=== PATIENT | male | born 1965 | race Caucasian/White ===

== ENCOUNTER 2021-02-18 11:30 | Inpatient (IN) ==
[2021-02-18] MEDS ORDERED: BISACODYL 5 MG TABLET PO PRN (12:34)
[2021-02-18] MEDS ORDERED: ACETAMINOPHEN 325 MG TABLET PO PRN (12:34)
[2021-02-18] MEDS ORDERED: HYDROmorphone 2 MG/1 ML VIAL IV PRN (12:34)
[2021-02-18] MEDS ORDERED: ONDANSETRON 4 MG/2 ML VIAL IV PRN (12:34)
[2021-02-18 12:54] LABS: Basophils # 0.1 10*3/uL (0.0-0.2); Basophils % 0.6 % (0.0-0.8); Eosinophils # 0.3 10*3/uL (0.0-0.87); Eosinophils % 2.2 % (0.00-10.9); Hematocrit 38.4 VOL% (42.0-52.0); Hemoglobin 13.3 GM/DL (14.0-18.0); Immature Granulocytes % 0.9 %; Immature Granulocytes Absolute 0.11 #; Lymphocytes # 1.9 10*3/uL (1.4-4.0); Lymphocytes % 15.6 % (21.2-54.2); Mean Corpuscular HGB Conc 34.6 GM/DL (32-36); Mean Corpuscular Volume 87.1 FL (87-102); Mean Platelet Volume 9.6 FL (9.6-12.0); Monocytes % 10.3 % (1.7-12.7); Neutrophils % 70.4 % (38.7-73.9); Platelet Count 434 T/CUMM (130-400); Red Blood Count 4.41 MC/CUMM (3.8-5.5); White Blood Count 12.1 T/CUMM (4-12)
[2021-02-18] MEDS: HYDROmorphone 2 MG/1 ML VIAL IV PRN (12:58)
[2021-02-18] MEDS: PIPERACILLIN/TAZOBACTAM 3,375 MG in SODIUM CHLORIDE 0.9% 100 ML IV SCH ×2 (12:59→21:11)
[2021-02-18] MEDS ORDERED: BUPIVACAINE MPF 0.25% 30 ML VIAL ONE (13:07)
[2021-02-18 13:21] LABS: Alanine Aminotransferase 23 U/L (16-61); Albumin 2.5 G/DL (3.4-5.0); Alkaline Phosphatase 128 U/L (45-117); Aspartate Amino Transferase 21 U/L (0-37); Bilirubin,Total < 0.39 MG/DL (0.20-1.00); Blood Urea Nitrogen 37 MG/DL (7-18); Calcium 8.5 MG/DL (8.5-10.1); Carbon Dioxide 27 MMOL/L (21-32); Estimated Glom Filtration Rate 34 ML/MIN; Glucose 256 MG/DL (74-106); Osmolality,Calculated 279.7 MOS/KG (273-304); Sodium 131 MMOL/L (136-145); Total Protein 7.2 G/DL (6.4-8.2)
[2021-02-18] MEDS ORDERED: DEXTROSE 50% 25 GM/50 ML VIAL IV PRN ×2 (13:33→16:31)
[2021-02-18] MEDS ORDERED: GLUCAGON 1 MG VIAL IM PRN ×2 (13:33→16:31)
[2021-02-18] MEDS ORDERED: fentaNYL 100 MCG/2 ML VIAL ONE (13:52)
[2021-02-18 13:53] LABS: Bacteria,Urine Occasional /HPF (Few); Bilirubin,Urine Negative (Negative); Blood, Urine Negative (Negative); Glucose,Urine (UA) 150 mg/dL (Negative); Hyaline Casts,Urine 3 /LPF (0-3); Ketones,Urine Negative (Negative); Mucus,Urine Occasional /LPF (Occasional); Nitrite,Urine Negative (Negative); Protein,Urine >=500 MG/DL; RBC,Urine 2 /HPF (0-4); Urine Appearance CLEAR (Clear); Urine Color Yellow (Yellow); Urine Specific Gravity 1.013 (1.001-1.035)
[2021-02-18 13:57] LABS: Barbiturates Screen,Urine Negative (Negative); Benzodiazepines Screen,Urine Negative (Negative); Cannabinoid Screen,Urine Negative (Negative); Opiate Screen,Urine Negative (Negative); Phencyclidine Screen,Urine Negative (Negative)
[2021-02-18] MEDS ORDERED: ePHEDrine 50 MG/ML VIAL ONE (14:17)
[2021-02-18] MEDS ORDERED: propofoL 200 MG/20 ML VIAL IV ONE (14:19)
[2021-02-18] MEDS ORDERED: LIDOCAINE 2% 5 ML VIAL ONE (14:19)
[2021-02-18] MEDS ORDERED: SEVOFLURANE 1 UNIT/15 MINUTE INH ONE (14:19)
[2021-02-18 14:32] LABS: Ferritin 1150.9 ng/mL (26-388)
[2021-02-18] MEDS: LACTATED RINGERS 1,000 ML IV SCH (16:45)
[2021-02-18] MEDS: INSULIN REGULAR 100 UNIT/ML SUBCUT SCH ×2 (17:28→21:10)
[2021-02-18] MEDS: VANCOMYCIN INJ 1,500 MG in SODIUM CHLORIDE 0.9% 500 ML IV SCH (17:29)
[2021-02-18 19:13] LABS: INR 1.1; PT Patient Result 11.9 SECS (10.5-12.0)
[2021-02-19 04:38] LABS: Basophils # 0.1 10*3/uL (0.0-0.2); Basophils % 0.7 % (0.0-0.8); Eosinophils # 0.2 10*3/uL (0.0-0.87); Eosinophils % 2.8 % (0.00-10.9); Hematocrit 34.1 VOL% (42.0-52.0); Hemoglobin 11.9 GM/DL (14.0-18.0); Immature Granulocytes % 0.9 %; Immature Granulocytes Absolute 0.08 #; Lymphocytes # 1.8 10*3/uL (1.4-4.0); Lymphocytes % 21.1 % (21.2-54.2); Mean Corpuscular HGB Conc 34.9 GM/DL (32-36); Mean Corpuscular Volume 90.5 FL (87-102); Mean Platelet Volume 9.6 FL (9.6-12.0); Monocytes % 12.1 % (1.7-12.7); Neutrophils % 62.4 % (38.7-73.9); Platelet Count 373 T/CUMM (130-400); Red Blood Count 3.77 MC/CUMM (3.8-5.5); Red Cell Distribution Width 13.3 % (9.3-17.3); White Blood Count 8.6 T/CUMM (4-12)
[2021-02-19] MEDS: PIPERACILLIN/TAZOBACTAM 3,375 MG in SODIUM CHLORIDE 0.9% 100 ML IV SCH ×4 (04:41→21:15)
[2021-02-19 04:59] LABS: Calcium 8.2 MG/DL (8.5-10.1); Osmolality,Calculated 273.4 MOS/KG (273-304); Potassium 3.3 MMOL/L (3.5-5.1)
[2021-02-19] MEDS: LACTATED RINGERS 1,000 ML IV SCH ×4 (06:12→14:39)
[2021-02-19] MEDS: INSULIN REGULAR 100 UNIT/ML SUBCUT SCH ×4 (07:47→21:15)
[2021-02-19] MEDS: PANTOPRAZOLE 40 MG TABLET PO SCH (08:27)
[2021-02-19] MEDS: HYDROmorphone 2 MG/1 ML VIAL IV PRN (15:00)
[2021-02-19] MEDS: VANCOMYCIN INJ 1,500 MG in SODIUM CHLORIDE 0.9% 500 ML IV SCH (18:21)
[2021-02-20] MEDS: PIPERACILLIN/TAZOBACTAM 3,375 MG in SODIUM CHLORIDE 0.9% 100 ML IV SCH (05:00)
[2021-02-20] MEDS: LACTATED RINGERS 1,000 ML IV SCH (06:27)
[2021-02-20 07:26] LABS: Basophils # 0.1 10*3/uL (0.0-0.2); Basophils % 0.6 % (0.0-0.8); Eosinophils # 0.2 10*3/uL (0.0-0.87); Eosinophils % 2.3 % (0.00-10.9); Hematocrit 35.8 VOL% (42.0-52.0); Immature Granulocytes % 0.9 %; Immature Granulocytes Absolute 0.08 #; Lymphocytes # 1.4 10*3/uL (1.4-4.0); Lymphocytes % 16.5 % (21.2-54.2); Mean Corpuscular HGB Conc 33.5 GM/DL (32-36); Mean Corpuscular Volume 90.4 FL (87-102); Mean Platelet Volume 9.3 FL (9.6-12.0); Monocytes % 12.2 % (1.7-12.7); Neutrophils % 67.5 % (38.7-73.9); Platelet Count 379 T/CUMM (130-400); Red Blood Count 3.96 MC/CUMM (3.8-5.5); Red Cell Distribution Width 13.5 % (9.3-17.3); White Blood Count 8.7 T/CUMM (4-12)
[2021-02-20 07:50] LABS: Calcium 8.3 MG/DL (8.5-10.1); Osmolality,Calculated 268.5 MOS/KG (273-304); Potassium 3.7 MMOL/L (3.5-5.1)
[2021-02-20] MEDS: PANTOPRAZOLE 40 MG TABLET PO SCH (08:10)
[2021-02-20] MEDS: INSULIN REGULAR 100 UNIT/ML SUBCUT SCH ×2 (08:11→11:59)
[2021-02-20] MEDS ORDERED: lisinopriL 20 MG TABLET PO SCH (09:30)
[2021-02-20] MEDS ORDERED: amLODIPine 10 MG TABLET PO SCH (09:30)
[2021-02-20] MEDS ORDERED: METOPROLOL SUCCINATE XL 100 MG TABLET PO SCH (09:30)
[2021-02-20 11:34] VITALS: BP 174/87
== END 2021-02-20 12:35 | disposition home health service (06) | DRG 256 ==
LOC: N.ED 11:30 → N.EDINP 12:34 → N.2E 14:25 → N.3E 02-19 13:58
PROVIDERS: ADMIT Surgery; ATTEND Surgery

== ENCOUNTER 2021-03-02 11:04 | Inpatient (IN) ==
[2021-03-02 11:41] LABS: Basophils # 0.1 10*3/uL (0.0-0.2); Basophils % 0.7 % (0.0-0.8); Eosinophils # 0.2 10*3/uL (0.0-0.87); Eosinophils % 1.8 % (0.00-10.9); Hematocrit 41.6 VOL% (42.0-52.0); Hemoglobin 13.7 GM/DL (14.0-18.0); Immature Granulocytes % 0.5 %; Immature Granulocytes Absolute 0.05 #; Lymphocytes # 1.9 10*3/uL (1.4-4.0); Lymphocytes % 20.3 % (21.2-54.2); Mean Corpuscular HGB Conc 32.9 GM/DL (32-36); Mean Corpuscular Volume 89.7 FL (87-102); Mean Platelet Volume 9.1 FL (9.6-12.0); Monocytes % 10.2 % (1.7-12.7); Neutrophils % 66.5 % (38.7-73.9); Platelet Count 352 T/CUMM (130-400); Red Blood Count 4.64 MC/CUMM (3.8-5.5); Red Cell Distribution Width 13.2 % (9.3-17.3); White Blood Count 9.4 T/CUMM (4-12)
[2021-03-02 12:03] LABS: Alanine Aminotransferase 19 U/L (16-61); Albumin 2.4 G/DL (3.4-5.0); Alkaline Phosphatase 134 U/L (45-117); Aspartate Amino Transferase 28 U/L (0-37); Bilirubin,Total < 0.39 MG/DL (0.20-1.00); Blood Urea Nitrogen 36 MG/DL (7-18); Calcium 9.2 MG/DL (8.5-10.1); Carbon Dioxide 24 MMOL/L (21-32); Estimated Glom Filtration Rate 41 ML/MIN; Glucose 211 MG/DL (74-106); Osmolality,Calculated 281.2 MOS/KG (273-304); Potassium 4.6 MMOL/L (3.5-5.1); Sodium 134 MMOL/L (136-145); Total Protein 8.5 G/DL (6.4-8.2)
[2021-03-02] MEDS ORDERED: hydrALAZINE 20 MG/1 ML VIAL IV STA (12:05)
[2021-03-02] MEDS ORDERED: hydrALAZINE 20 MG/1 ML VIAL ONE (12:08)
[2021-03-02] MEDS: PIPERACILLIN/TAZOBACTAM 3,375 MG in SODIUM CHLORIDE 0.9% 100 ML IV SCH ×2 (12:19→21:51)
[2021-03-02] MEDS ORDERED: LACTATED RINGERS 1,000 ML IV SCH (12:30)
[2021-03-02] MEDS ORDERED: propofoL 200 MG/20 ML VIAL IV ONE ×2 (13:15→13:53)
[2021-03-02] MEDS ORDERED: LIDOCAINE 2% 5 ML VIAL ONE (13:15)
[2021-03-02] MEDS ORDERED: fentaNYL 100 MCG/2 ML VIAL ONE (13:16)
[2021-03-02] MEDS ORDERED: MIDAZOLAM 2 MG/2 ML VIAL ONE (13:16)
[2021-03-02] MEDS ORDERED: SEVOFLURANE 1 UNIT/15 MINUTE INH ONE (13:16)
[2021-03-02] MEDS ORDERED: LIDOCAINE 1% 50 ML VIAL ONE (13:38)
[2021-03-02] MEDS ORDERED: BUPIVACAINE MPF 0.25% 30 ML VIAL ONE (13:39)
[2021-03-02] MEDS ORDERED: ONDANSETRON 4 MG/2 ML VIAL ONE (13:53)
[2021-03-02] MEDS ORDERED: LACTATED RINGERS 1,000 ML IV ONE (14:13)
[2021-03-02] MEDS ORDERED: ONDANSETRON 4 MG/2 ML VIAL IV PRN ×2 (14:21→14:44)
[2021-03-02] MEDS ORDERED: GLUCAGON 1 MG VIAL IM PRN (14:21)
[2021-03-02] MEDS ORDERED: DEXTROSE 50% 25 GM/50 ML VIAL IV PRN ×2 (14:21→17:08)
[2021-03-02] MEDS ORDERED: HYDROmorphone 2 MG/1 ML VIAL ONE (14:43)
[2021-03-02] MEDS: HYDROmorphone 2 MG/1 ML VIAL IV PRN ×4 (14:45→15:13)
[2021-03-02] MEDS ORDERED: INFLUENZA VIRUS VACCINE 0.5 ML SYRINGE IM ONE (15:54)
[2021-03-02] MEDS ORDERED: hydrALAZINE 20 MG/1 ML VIAL IV PRN (17:03)
[2021-03-02] MEDS: diphenhydrAMINE 50 MG/1 ML VIAL IV PRN (17:05)
[2021-03-02] MEDS: SIMVASTATIN 40 MG TABLET PO SCH (21:50)
[2021-03-02] MEDS: INSULIN LISPRO 100 UNIT/ML SUBCUT SCH (21:52)
[2021-03-02] MEDS: INSULIN GLARGINE 100 UNIT/ML SUBCUT SCH (21:53)
[2021-03-02] MEDS: SODIUM CHLORIDE 0.9% 1,000 ML IV SCH (23:56)
[2021-03-03] MEDS: PIPERACILLIN/TAZOBACTAM 3,375 MG in SODIUM CHLORIDE 0.9% 100 ML IV SCH ×3 (05:06→21:50)
[2021-03-03 06:35] LABS: Basophils # 0.1 10*3/uL (0.0-0.2); Basophils % 1.1 % (0.0-0.8); Eosinophils # 0.2 10*3/uL (0.0-0.87); Eosinophils % 2.8 % (0.00-10.9); Hematocrit 36.4 VOL% (42.0-52.0); Hemoglobin 11.9 GM/DL (14.0-18.0); Immature Granulocytes % 0.6 %; Immature Granulocytes Absolute 0.04 #; Lymphocytes # 1.7 10*3/uL (1.4-4.0); Mean Corpuscular HGB Conc 32.7 GM/DL (32-36); Mean Corpuscular Volume 90.5 FL (87-102); Mean Platelet Volume 9.4 FL (9.6-12.0); Monocytes % 11.4 % (1.7-12.7); Neutrophils % 60.1 % (38.7-73.9); Platelet Count 300 T/CUMM (130-400); Red Blood Count 4.02 MC/CUMM (3.8-5.5); Red Cell Distribution Width 13.5 % (9.3-17.3); White Blood Count 7.3 T/CUMM (4-12)
[2021-03-03 06:54] LABS: Calcium 8.6 MG/DL (8.5-10.1)
[2021-03-03 06:58] LABS: Risk Ratio 5.44; VLDL Cholesterol 37.6 MG/DL
[2021-03-03] MEDS: INSULIN LISPRO 100 UNIT/ML SUBCUT SCH ×4 (07:47→23:06)
[2021-03-03] MEDS: amLODIPine 10 MG TABLET PO SCH (09:19)
[2021-03-03] MEDS: CLOPIDOGREL 75 MG TABLET PO SCH (09:19)
[2021-03-03] MEDS: METOPROLOL SUCCINATE XL 100 MG TABLET PO SCH (09:19)
[2021-03-03] MEDS: PANTOPRAZOLE 40 MG TABLET PO SCH (09:19)
[2021-03-03] MEDS ORDERED: oxyCODONE/ACETAMINOPHEN 5-325 MG TABLET PO PRN (09:50)
[2021-03-03] MEDS: SODIUM CHLORIDE 0.9% 1,000 ML IV SCH ×2 (10:21→21:53)
[2021-03-03] MEDS: oxyCODONE/ACETAMINOPHEN 5-325 MG TABLET PO PRN ×3 (10:29→19:14)
[2021-03-03] MEDS: diphenhydrAMINE 50 MG/1 ML VIAL IV PRN ×2 (13:34→19:14)
[2021-03-03] MEDS: SIMVASTATIN 40 MG TABLET PO SCH (21:53)
[2021-03-03] MEDS: INSULIN GLARGINE 100 UNIT/ML SUBCUT SCH (21:53)
[2021-03-04] MEDS: diphenhydrAMINE 50 MG/1 ML VIAL IV PRN ×3 (01:05→15:11)
[2021-03-04] MEDS: oxyCODONE/ACETAMINOPHEN 5-325 MG TABLET PO PRN ×3 (01:06→15:12)
[2021-03-04] MEDS: PIPERACILLIN/TAZOBACTAM 3,375 MG in SODIUM CHLORIDE 0.9% 100 ML IV SCH ×3 (03:14→21:04)
[2021-03-04] MEDS: CLOPIDOGREL 75 MG TABLET PO SCH (08:52)
[2021-03-04] MEDS: PANTOPRAZOLE 40 MG TABLET PO SCH (08:52)
[2021-03-04] MEDS: METOPROLOL SUCCINATE XL 100 MG TABLET PO SCH (08:52)
[2021-03-04] MEDS: amLODIPine 10 MG TABLET PO SCH (08:53)
[2021-03-04] MEDS: INSULIN LISPRO 100 UNIT/ML SUBCUT SCH ×4 (11:57→21:03)
[2021-03-04] MEDS: lisinopriL 20 MG TABLET PO SCH (14:59)
[2021-03-04] MEDS: SODIUM CHLORIDE 0.9% 1,000 ML IV SCH ×2 (14:59→23:55)
[2021-03-04] MEDS: SIMVASTATIN 40 MG TABLET PO SCH (21:04)
[2021-03-04] MEDS: INSULIN GLARGINE 100 UNIT/ML SUBCUT SCH (21:53)
[2021-03-05] MEDS: PIPERACILLIN/TAZOBACTAM 3,375 MG in SODIUM CHLORIDE 0.9% 100 ML IV SCH ×3 (05:33→21:45)
[2021-03-05 07:12] LABS: Basophils # 0.1 10*3/uL (0.0-0.2); Basophils % 0.8 % (0.0-0.8); Eosinophils # 0.2 10*3/uL (0.0-0.87); Eosinophils % 2.7 % (0.00-10.9); Hematocrit 36.9 VOL% (42.0-52.0); Hemoglobin 11.8 GM/DL (14.0-18.0); Immature Granulocytes % 0.4 %; Immature Granulocytes Absolute 0.03 #; Lymphocytes # 1.3 10*3/uL (1.4-4.0); Lymphocytes % 18.1 % (21.2-54.2); Mean Corpuscular Volume 89.3 FL (87-102); Mean Platelet Volume 9.6 FL (9.6-12.0); Platelet Count 302 T/CUMM (130-400); Red Blood Count 4.13 MC/CUMM (3.8-5.5); Red Cell Distribution Width 13.4 % (9.3-17.3); White Blood Count 7.3 T/CUMM (4-12)
[2021-03-05] MEDS ORDERED: VANCOMYCIN INJ 1,000 MG in SODIUM CHLORIDE 0.9% 250 ML IV SCH (07:30)
[2021-03-05 07:33] LABS: Calcium 8.5 MG/DL (8.5-10.1); Potassium 4.1 MMOL/L (3.5-5.1)
[2021-03-05] MEDS: lisinopriL 20 MG TABLET PO SCH (10:22)
[2021-03-05] MEDS: amLODIPine 10 MG TABLET PO SCH (10:22)
[2021-03-05] MEDS: CLOPIDOGREL 75 MG TABLET PO SCH (10:23)
[2021-03-05] MEDS: PANTOPRAZOLE 40 MG TABLET PO SCH (10:23)
[2021-03-05] MEDS: METOPROLOL SUCCINATE XL 100 MG TABLET PO SCH (10:23)
[2021-03-05] MEDS: INSULIN LISPRO 100 UNIT/ML SUBCUT SCH ×4 (10:24→22:00)
[2021-03-05] MEDS: VANCOMYCIN INJ 1,750 MG in SODIUM CHLORIDE 0.9% 500 ML IV SCH (11:22)
[2021-03-05] MEDS: SODIUM CHLORIDE 0.9% 1,000 ML IV SCH (14:49)
[2021-03-05] MEDS: SIMVASTATIN 40 MG TABLET PO SCH (21:30)
[2021-03-05] MEDS: INSULIN GLARGINE 100 UNIT/ML SUBCUT SCH (21:30)
[2021-03-06] MEDS: PIPERACILLIN/TAZOBACTAM 3,375 MG in SODIUM CHLORIDE 0.9% 100 ML IV SCH ×3 (03:30→20:52)
[2021-03-06] MEDS: SODIUM CHLORIDE 0.9% 1,000 ML IV SCH ×2 (04:13→19:23)
[2021-03-06 05:52] LABS: Basophils # 0.1 10*3/uL (0.0-0.2); Basophils % 1.1 % (0.0-0.8); Eosinophils # 0.3 10*3/uL (0.0-0.87); Eosinophils % 3.8 % (0.00-10.9); Hematocrit 40.1 VOL% (42.0-52.0); Hemoglobin 12.8 GM/DL (14.0-18.0); Immature Granulocytes % 0.5 %; Immature Granulocytes Absolute 0.03 #; Lymphocytes # 2.1 10*3/uL (1.4-4.0); Lymphocytes % 31.9 % (21.2-54.2); Mean Corpuscular HGB Conc 31.9 GM/DL (32-36); Mean Corpuscular Volume 91.3 FL (87-102); Mean Platelet Volume 9.5 FL (9.6-12.0); Monocytes % 10.2 % (1.7-12.7); Neutrophils % 52.5 % (38.7-73.9); Platelet Count 340 T/CUMM (130-400); Red Blood Count 4.39 MC/CUMM (3.8-5.5); Red Cell Distribution Width 13.3 % (9.3-17.3); White Blood Count 6.6 T/CUMM (4-12)
[2021-03-06 06:09] LABS: Calcium 8.6 MG/DL (8.5-10.1); Osmolality,Calculated 280.7 MOS/KG (273-304); Potassium 3.6 MMOL/L (3.5-5.1)
[2021-03-06] MEDS: lisinopriL 20 MG TABLET PO SCH (09:00)
[2021-03-06] MEDS: CLOPIDOGREL 75 MG TABLET PO SCH (09:01)
[2021-03-06] MEDS: VANCOMYCIN INJ 1,750 MG in SODIUM CHLORIDE 0.9% 500 ML IV SCH (09:01)
[2021-03-06] MEDS: amLODIPine 10 MG TABLET PO SCH (09:01)
[2021-03-06] MEDS: METOPROLOL SUCCINATE XL 100 MG TABLET PO SCH (09:01)
[2021-03-06] MEDS: PANTOPRAZOLE 40 MG TABLET PO SCH (09:01)
[2021-03-06] MEDS: INSULIN LISPRO 100 UNIT/ML SUBCUT SCH ×4 (09:02→20:51)
[2021-03-06] MEDS: SIMVASTATIN 40 MG TABLET PO SCH (20:51)
[2021-03-06] MEDS: INSULIN GLARGINE 100 UNIT/ML SUBCUT SCH (20:52)
[2021-03-07] MEDS: PIPERACILLIN/TAZOBACTAM 3,375 MG in SODIUM CHLORIDE 0.9% 100 ML IV SCH ×3 (03:10→21:33)
[2021-03-07 05:10] LABS: Basophils # 0.1 10*3/uL (0.0-0.2); Basophils % 0.7 % (0.0-0.8); Eosinophils # 0.3 10*3/uL (0.0-0.87); Eosinophils % 4.5 % (0.00-10.9); Hematocrit 35.8 VOL% (42.0-52.0); Hemoglobin 11.4 GM/DL (14.0-18.0); Immature Granulocytes % 0.4 %; Immature Granulocytes Absolute 0.03 #; Lymphocytes # 1.9 10*3/uL (1.4-4.0); Lymphocytes % 28.8 % (21.2-54.2); Mean Corpuscular HGB Conc 31.8 GM/DL (32-36); Mean Corpuscular Volume 91.3 FL (87-102); Mean Platelet Volume 9.5 FL (9.6-12.0); Monocytes % 11.9 % (1.7-12.7); Neutrophils % 53.7 % (38.7-73.9); Platelet Count 301 T/CUMM (130-400); Red Blood Count 3.92 MC/CUMM (3.8-5.5); Red Cell Distribution Width 13.5 % (9.3-17.3); White Blood Count 6.7 T/CUMM (4-12)
[2021-03-07 05:27] LABS: Osmolality,Calculated 281.7 MOS/KG (273-304)
[2021-03-07 06:15] LABS: Anisocytosis 1+; Microcytosis 1+; Polychromasia Slight
[2021-03-07 06:16] LABS: Platelet Estimate Normal
[2021-03-07] MEDS: LINEZOLID 600 MG TABLET PO SCH ×2 (09:42→21:32)
[2021-03-07] MEDS: METOPROLOL SUCCINATE XL 100 MG TABLET PO SCH (09:42)
[2021-03-07] MEDS: lisinopriL 20 MG TABLET PO SCH (09:42)
[2021-03-07] MEDS: PANTOPRAZOLE 40 MG TABLET PO SCH (09:42)
[2021-03-07] MEDS: hydroCHLOROthiazide 12.5 MG CAPSULE PO SCH (09:42)
[2021-03-07] MEDS: amLODIPine 10 MG TABLET PO SCH (09:42)
[2021-03-07] MEDS: INSULIN LISPRO 100 UNIT/ML SUBCUT SCH ×4 (09:42→21:44)
[2021-03-07] MEDS: CLOPIDOGREL 75 MG TABLET PO SCH (09:42)
[2021-03-07] MEDS: INSULIN GLARGINE 100 UNIT/ML SUBCUT SCH (21:30)
[2021-03-07] MEDS: SIMVASTATIN 40 MG TABLET PO SCH (21:32)
[2021-03-08] MEDS: SODIUM CHLORIDE 0.9% 1,000 ML IV SCH ×2 (03:20→19:58)
[2021-03-08] MEDS: PIPERACILLIN/TAZOBACTAM 3,375 MG in SODIUM CHLORIDE 0.9% 100 ML IV SCH ×3 (04:08→21:07)
[2021-03-08 05:47] LABS: Basophils # 0.1 10*3/uL (0.0-0.2); Basophils % 0.7 % (0.0-0.8); Eosinophils # 0.3 10*3/uL (0.0-0.87); Eosinophils % 4.3 % (0.00-10.9); Hematocrit 36.1 VOL% (42.0-52.0); Hemoglobin 11.7 GM/DL (14.0-18.0); Immature Granulocytes % 0.4 %; Immature Granulocytes Absolute 0.03 #; Lymphocytes # 1.9 10*3/uL (1.4-4.0); Lymphocytes % 27.6 % (21.2-54.2); Mean Corpuscular HGB Conc 32.4 GM/DL (32-36); Mean Corpuscular Volume 90.7 FL (87-102); Mean Platelet Volume 9.6 FL (9.6-12.0); Monocytes % 9.5 % (1.7-12.7); Neutrophils % 57.5 % (38.7-73.9); Platelet Count 314 T/CUMM (130-400); Red Blood Count 3.98 MC/CUMM (3.8-5.5); Red Cell Distribution Width 13.3 % (9.3-17.3); White Blood Count 6.7 T/CUMM (4-12)
[2021-03-08 06:10] LABS: Calcium 8.4 MG/DL (8.5-10.1); Osmolality,Calculated 277.8 MOS/KG (273-304); Potassium 3.6 MMOL/L (3.5-5.1)
[2021-03-08] MEDS: amLODIPine 10 MG TABLET PO SCH (08:43)
[2021-03-08] MEDS: CLOPIDOGREL 75 MG TABLET PO SCH (08:43)
[2021-03-08] MEDS: LINEZOLID 600 MG TABLET PO SCH ×2 (08:43→21:11)
[2021-03-08] MEDS: PANTOPRAZOLE 40 MG TABLET PO SCH (08:43)
[2021-03-08] MEDS: METOPROLOL SUCCINATE XL 100 MG TABLET PO SCH (08:43)
[2021-03-08] MEDS: lisinopriL 20 MG TABLET PO SCH (08:43)
[2021-03-08] MEDS: hydroCHLOROthiazide 12.5 MG CAPSULE PO SCH (08:43)
[2021-03-08] MEDS: INSULIN LISPRO 100 UNIT/ML SUBCUT SCH ×4 (08:44→21:09)
[2021-03-08] MEDS ORDERED: INSULIN GLARGINE 100 UNIT/ML SUBCUT SCH (21:00)
[2021-03-08] MEDS: SIMVASTATIN 40 MG TABLET PO SCH (21:11)
[2021-03-09] MEDS: PIPERACILLIN/TAZOBACTAM 3,375 MG in SODIUM CHLORIDE 0.9% 100 ML IV SCH (03:14)
[2021-03-09 05:51] LABS: Basophils # 0.1 10*3/uL (0.0-0.2); Basophils % 0.8 % (0.0-0.8); Eosinophils # 0.3 10*3/uL (0.0-0.87); Eosinophils % 4.2 % (0.00-10.9); Hematocrit 37.1 VOL% (42.0-52.0); Hemoglobin 11.9 GM/DL (14.0-18.0); Immature Granulocytes % 0.4 %; Immature Granulocytes Absolute 0.03 #; Lymphocytes % 27.8 % (21.2-54.2); Mean Corpuscular HGB Conc 32.1 GM/DL (32-36); Mean Corpuscular Volume 90.3 FL (87-102); Mean Platelet Volume 9.5 FL (9.6-12.0); Monocytes % 8.9 % (1.7-12.7); Neutrophils % 57.9 % (38.7-73.9); Platelet Count 332 T/CUMM (130-400); Red Blood Count 4.11 MC/CUMM (3.8-5.5); Red Cell Distribution Width 13.5 % (9.3-17.3); White Blood Count 7.2 T/CUMM (4-12)
[2021-03-09 06:35] LABS: Calcium 8.7 MG/DL (8.5-10.1); Osmolality,Calculated 277.7 MOS/KG (273-304); Potassium 3.9 MMOL/L (3.5-5.1)
[2021-03-09] MEDS: INSULIN LISPRO 100 UNIT/ML SUBCUT SCH ×3 (07:29→15:47)
[2021-03-09] MEDS: PANTOPRAZOLE 40 MG TABLET PO SCH (08:30)
[2021-03-09] MEDS: CLOPIDOGREL 75 MG TABLET PO SCH (08:30)
[2021-03-09] MEDS: lisinopriL 20 MG TABLET PO SCH (08:30)
[2021-03-09] MEDS: METOPROLOL SUCCINATE XL 100 MG TABLET PO SCH (08:30)
[2021-03-09] MEDS: LINEZOLID 600 MG TABLET PO SCH (08:30)
[2021-03-09] MEDS: hydroCHLOROthiazide 12.5 MG CAPSULE PO SCH (08:30)
[2021-03-09] MEDS: amLODIPine 10 MG TABLET PO SCH (08:30)
[2021-03-09 11:49] VITALS: BP 169/81
== END 2021-03-09 16:25 | disposition home health service (06) | DRG 264 ==
LOC: N.OR 11:04 → N.SDSINP 11:10 → N.3E 15:40
PROVIDERS: ADMIT Surgery; ATTEND Surgery

== ENCOUNTER 2021-03-18 15:20 | Inpatient (IN) ==
[2021-03-18] MEDS ORDERED: DEXTROSE 50% 25 GM/50 ML SYRINGE IV PRN (16:27)
[2021-03-18] MEDS ORDERED: GLUCAGON 1 MG VIAL IM PRN (16:27)
[2021-03-18] MEDS: MORPHINE 2 MG/1 ML SYRINGE IV PRN (18:01)
[2021-03-18 20:22] LABS: Calcium 8.2 MG/DL (8.5-10.1); Osmolality,Calculated 285.2 MOS/KG (273-304); Potassium 3.5 MMOL/L (3.5-5.1)
[2021-03-18] MEDS ORDERED: VANCOMYCIN INJ 1,000 MG in SODIUM CHLORIDE 0.9% 250 ML IV SCH (21:00)
[2021-03-18] MEDS: VANCOMYCIN INJ 1,500 MG in SODIUM CHLORIDE 0.9% 500 ML IV SCH (22:40)
[2021-03-19] MEDS: diphenhydrAMINE CAP 25 MG CAPSULE PO PRN ×3 (03:47→21:52)
[2021-03-19] MEDS: MORPHINE 2 MG/1 ML SYRINGE IV PRN ×3 (03:50→21:52)
[2021-03-19] MEDS ORDERED: DEXTROSE 50% 25 GM/50 ML VIAL IV PRN (09:06)
[2021-03-19] MEDS ORDERED: GLUCAGON 1 MG VIAL IM PRN (09:06)
[2021-03-19] MEDS: LACTATED RINGERS 1,000 ML IV SCH ×2 (09:37→19:22)
[2021-03-19] MEDS ORDERED: propofoL 200 MG/20 ML VIAL IV ONE (09:49)
[2021-03-19] MEDS ORDERED: LIDOCAINE 2% 5 ML VIAL ONE (09:49)
[2021-03-19] MEDS ORDERED: fentaNYL 100 MCG/2 ML VIAL ONE (09:49)
[2021-03-19] MEDS ORDERED: MIDAZOLAM 2 MG/2 ML VIAL ONE (09:49)
[2021-03-19] MEDS ORDERED: SUCCINYLCHOLINE 200 MG/10 ML VIAL ONE (09:51)
[2021-03-19] MEDS ORDERED: BUPIVACAINE MPF 0.25% 30 ML VIAL ONE (09:56)
[2021-03-19] MEDS ORDERED: LIDOCAINE 1% 50 ML VIAL ONE (09:56)
[2021-03-19] MEDS ORDERED: FAMOTIDINE 20 MG/2 ML VIAL IV ONE (10:05)
[2021-03-19] MEDS ORDERED: ONDANSETRON 4 MG/2 ML VIAL ONE (10:30)
[2021-03-19] MEDS ORDERED: PHENYLEPHRINE 1 MG/10 ML SYRINGE IV ONE (10:30)
[2021-03-19] MEDS ORDERED: INSULIN GLARGINE 100 UNIT/ML SUBCUT SCH (11:00)
[2021-03-19] MEDS ORDERED: HYDROmorphone 2 MG/1 ML VIAL ONE (11:03)
[2021-03-19] MEDS ORDERED: HYDROmorphone 2 MG/1 ML VIAL IV PRN (11:06)
[2021-03-19] MEDS: PIOGLITAZONE 15 MG TABLET PO SCH (16:29)
[2021-03-19] MEDS: amLODIPine 10 MG TABLET PO SCH (16:29)
[2021-03-19] MEDS: METOPROLOL SUCCINATE XL 100 MG TABLET PO SCH (16:30)
[2021-03-19] MEDS: CEFEPIME 1,000 MG in SODIUM CHLORIDE 0.9% 100 ML IV SCH (16:30)
[2021-03-19] MEDS: BUMETANIDE 1 MG TABLET PO SCH (16:30)
[2021-03-19] MEDS: INSULIN LISPRO 100 UNIT/ML SUBCUT SCH ×3 (17:05→20:58)
[2021-03-19] MEDS: SIMVASTATIN 40 MG TABLET PO SCH (20:57)
[2021-03-19] MEDS: VANCOMYCIN INJ 1,500 MG in SODIUM CHLORIDE 0.9% 500 ML IV SCH (21:04)
[2021-03-20] MEDS: CEFEPIME 1,000 MG in SODIUM CHLORIDE 0.9% 100 ML IV SCH ×3 (00:19→17:28)
[2021-03-20] MEDS: MORPHINE 2 MG/1 ML SYRINGE IV PRN ×2 (01:50→19:52)
[2021-03-20 05:33] LABS: Basophils % 0.5 % (0.0-0.8); Eosinophils # 0.2 10*3/uL (0.0-0.87); Eosinophils % 2.1 % (0.00-10.9); Hematocrit 35.3 VOL% (42.0-52.0); Hemoglobin 11.8 GM/DL (14.0-18.0); Immature Granulocytes % 0.4 %; Immature Granulocytes Absolute 0.03 #; Lymphocytes # 1.9 10*3/uL (1.4-4.0); Lymphocytes % 24.8 % (21.2-54.2); Mean Corpuscular HGB Conc 33.4 GM/DL (32-36); Mean Corpuscular Volume 90.3 FL (87-102); Mean Platelet Volume 9.7 FL (9.6-12.0); Monocytes % 15.7 % (1.7-12.7); Neutrophils % 56.5 % (38.7-73.9); Platelet Count 233 T/CUMM (130-400); Red Blood Count 3.91 MC/CUMM (3.8-5.5); Red Cell Distribution Width 14.1 % (9.3-17.3); White Blood Count 7.8 T/CUMM (4-12)
[2021-03-20 05:52] LABS: Calcium 8.3 MG/DL (8.5-10.1); Osmolality,Calculated 275.2 MOS/KG (273-304); Potassium 3.7 MMOL/L (3.5-5.1)
[2021-03-20 06:08] LABS: Lymphocytes 14 % (20-55); Platelet Estimate Normal; Segmented Neutrophils 65 % (50-85); Total Cells Counted 100
[2021-03-20] MEDS: BUMETANIDE 1 MG TABLET PO SCH ×2 (08:32→16:41)
[2021-03-20] MEDS: diphenhydrAMINE CAP 25 MG CAPSULE PO PRN ×3 (08:32→22:38)
[2021-03-20] MEDS: PIOGLITAZONE 15 MG TABLET PO SCH (08:32)
[2021-03-20] MEDS: METOPROLOL SUCCINATE XL 100 MG TABLET PO SCH (08:33)
[2021-03-20] MEDS: INSULIN LISPRO 100 UNIT/ML SUBCUT SCH ×4 (08:33→22:29)
[2021-03-20] MEDS: amLODIPine 10 MG TABLET PO SCH (08:33)
[2021-03-20] MEDS ORDERED: ASPIRIN CHEW 81 MG TABLET PO SCH (09:00)
[2021-03-20] MEDS: LACTATED RINGERS 1,000 ML IV SCH ×3 (09:14→22:27)
[2021-03-20] MEDS: VANCOMYCIN INJ 1,500 MG in SODIUM CHLORIDE 0.9% 500 ML IV SCH (22:28)
[2021-03-20] MEDS: SKIN HEALING OINT (AQUAPHOR) 50 GM TUBE TOP PRN (22:28)
[2021-03-20] MEDS: SIMVASTATIN 40 MG TABLET PO SCH (22:31)
[2021-03-21] MEDS: CEFEPIME 1,000 MG in SODIUM CHLORIDE 0.9% 100 ML IV SCH (00:21)
[2021-03-21] MEDS: diphenhydrAMINE CAP 25 MG CAPSULE PO PRN (06:20)
[2021-03-21] MEDS: SKIN HEALING OINT (AQUAPHOR) 50 GM TUBE TOP PRN (06:21)
[2021-03-21] MEDS: MORPHINE 2 MG/1 ML SYRINGE IV PRN (06:24)
[2021-03-21 07:54] VITALS: BP 156/81
[2021-03-21] MEDS ORDERED: CIPROFLOXACIN 500 MG TABLET PO SCH (09:00)
== END 2021-03-21 09:24 | disposition home health service (06) | DRG 504 ==
LOC: N.5E 15:23
PROVIDERS: ADMIT Surgery; ATTEND Surgery

== ENCOUNTER 2021-04-15 15:11 | Inpatient (IN) ==
[2021-04-15] MEDS ORDERED: GLUCAGON 1 MG VIAL IM PRN (17:58)
[2021-04-15] MEDS ORDERED: DEXTROSE 50% 25 GM/50 ML SYRINGE IV PRN (17:58)
[2021-04-15] MEDS: diphenhydrAMINE CAP 25 MG CAPSULE PO PRN (18:46)
[2021-04-15] MEDS: ONDANSETRON 4 MG/2 ML VIAL IV PRN (18:47)
[2021-04-15] MEDS: HYDROmorphone 2 MG/1 ML VIAL IV PRN (18:51)
[2021-04-15] MEDS ORDERED: VANCOMYCIN INJ 1,000 MG in SODIUM CHLORIDE 0.9% 250 ML IV ONE (19:15)
[2021-04-15] MEDS: PIPERACILLIN/TAZOBACTAM 3,375 MG in SODIUM CHLORIDE 0.9% 100 ML IV SCH (22:35)
[2021-04-16] MEDS: PIPERACILLIN/TAZOBACTAM 3,375 MG in SODIUM CHLORIDE 0.9% 100 ML IV SCH ×2 (05:19→17:44)
[2021-04-16 05:24] LABS: Basophils % 0.3 % (0.0-0.8); Eosinophils # 0.2 10*3/uL (0.0-0.87); Eosinophils % 1.5 % (0.00-10.9); Hematocrit 36.1 VOL% (42.0-52.0); Hemoglobin 12.2 GM/DL (14.0-18.0); Immature Granulocytes % 0.8 %; Lymphocytes # 2.1 10*3/uL (1.4-4.0); Lymphocytes % 17.3 % (21.2-54.2); Mean Corpuscular HGB Conc 33.8 GM/DL (32-36); Mean Corpuscular Volume 85.7 FL (87-102); Mean Platelet Volume 9.5 FL (9.6-12.0); Monocytes % 12.7 % (1.7-12.7); Neutrophils % 67.4 % (38.7-73.9); Platelet Count 370 T/CUMM (130-400); Red Blood Count 4.21 MC/CUMM (3.8-5.5); Red Cell Distribution Width 13.4 % (9.3-17.3); White Blood Count 12.1 T/CUMM (4-12)
[2021-04-16 05:58] LABS: Band Neutrophils 1 % (0-10); Eosinophils 2 % (0-10); Lymphocytes 14 % (20-55); Platelet Estimate Normal; Segmented Neutrophils 74 % (50-85); Total Cells Counted 100
[2021-04-16] MEDS: diphenhydrAMINE CAP 25 MG CAPSULE PO PRN ×2 (06:33→21:31)
[2021-04-16] MEDS: ONDANSETRON 4 MG/2 ML VIAL IV PRN ×3 (06:34→21:32)
[2021-04-16] MEDS: HYDROmorphone 2 MG/1 ML VIAL IV PRN ×4 (06:34→21:32)
[2021-04-16 06:58] LABS: Calcium 8.3 MG/DL (8.5-10.1); Osmolality,Calculated 270.8 MOS/KG (273-304); Potassium 3.3 MMOL/L (3.5-5.1)
[2021-04-16] MEDS ORDERED: VANCOMYCIN INJ 1,500 MG in SODIUM CHLORIDE 0.9% 500 ML IV SCH (08:30)
[2021-04-16] MEDS ORDERED: propofoL 200 MG/20 ML VIAL IV ONE (08:47)
[2021-04-16] MEDS ORDERED: fentaNYL 100 MCG/2 ML VIAL ONE ×2 (08:47→09:35)
[2021-04-16] MEDS ORDERED: MIDAZOLAM 2 MG/2 ML VIAL ONE (08:47)
[2021-04-16] MEDS ORDERED: ONDANSETRON 4 MG/2 ML VIAL ONE (08:47)
[2021-04-16] MEDS ORDERED: LIDOCAINE 2% 5 ML VIAL ONE (08:47)
[2021-04-16] MEDS ORDERED: SODIUM CHLORIDE 0.9% 1,000 ML IV SCH (09:00)
[2021-04-16] MEDS ORDERED: LACTATED RINGERS 1,000 ML IV SCH (09:30)
[2021-04-16] MEDS ORDERED: ePHEDrine 50 MG/ML VIAL ONE (09:47)
[2021-04-16] MEDS ORDERED: SEVOFLURANE 1 UNIT/15 MINUTE INH ONE (10:05)
[2021-04-16] MEDS ORDERED: SODIUM CHLORIDE 0.9% 1,000 ML IV ONE (11:23)
[2021-04-16] MEDS: ACETYLCYSTEINE 600 MG CAPSULE PO SCH ×2 (11:49→21:32)
[2021-04-16] MEDS: diphenhydrAMINE CAP 25 MG CAPSULE PO SCH ×2 (11:49→17:44)
[2021-04-16] MEDS: INSULIN REGULAR 100 UNIT/ML SUBCUT SCH ×2 (12:47→16:56)
[2021-04-16] MEDS: SODIUM CHLORIDE 0.9% 1,000 ML IV SCH ×2 (13:05→15:52)
[2021-04-16] MEDS: VANCOMYCIN INJ 1,500 MG in SODIUM CHLORIDE 0.9% 500 ML IV SCH (15:10)
[2021-04-16] MEDS: BUMETANIDE 1 MG TABLET PO SCH (21:43)
[2021-04-17] MEDS: INSULIN REGULAR 100 UNIT/ML SUBCUT SCH ×5 (01:15→20:10)
[2021-04-17] MEDS: HYDROmorphone 2 MG/1 ML VIAL IV PRN ×6 (02:32→20:13)
[2021-04-17] MEDS: diphenhydrAMINE CAP 25 MG CAPSULE PO PRN ×3 (02:34→15:53)
[2021-04-17] MEDS: ONDANSETRON 4 MG/2 ML VIAL IV PRN ×2 (02:34→17:11)
[2021-04-17] MEDS: diphenhydrAMINE CAP 25 MG CAPSULE PO SCH ×5 (02:36→23:01)
[2021-04-17] MEDS: PIPERACILLIN/TAZOBACTAM 3,375 MG in SODIUM CHLORIDE 0.9% 100 ML IV SCH ×4 (02:37→23:01)
[2021-04-17] MEDS: SODIUM CHLORIDE 0.9% 1,000 ML IV SCH ×2 (02:37→15:25)
[2021-04-17 06:07] LABS: Basophils % 0.4 % (0.0-0.8); Eosinophils # 0.1 10*3/uL (0.0-0.87); Eosinophils % 1.2 % (0.00-10.9); Hematocrit 35.5 VOL% (42.0-52.0); Hemoglobin 12.1 GM/DL (14.0-18.0); Immature Granulocytes % 0.8 %; Immature Granulocytes Absolute 0.08 #; Lymphocytes # 1.6 10*3/uL (1.4-4.0); Lymphocytes % 15.6 % (21.2-54.2); Mean Corpuscular HGB Conc 34.1 GM/DL (32-36); Mean Corpuscular Volume 86.2 FL (87-102); Mean Platelet Volume 9.1 FL (9.6-12.0); Monocytes % 10.2 % (1.7-12.7); Neutrophils % 71.8 % (38.7-73.9); Platelet Count 426 T/CUMM (130-400); Red Blood Count 4.12 MC/CUMM (3.8-5.5); Red Cell Distribution Width 13.7 % (9.3-17.3); White Blood Count 10.5 T/CUMM (4-12)
[2021-04-17 06:27] LABS: Calcium 7.9 MG/DL (8.5-10.1); Osmolality,Calculated 274.2 MOS/KG (273-304); Potassium 3.5 MMOL/L (3.5-5.1)
[2021-04-17] MEDS ORDERED: fentaNYL 100 MCG/2 ML VIAL IV ONE ×2 (07:00→12:23)
[2021-04-17] MEDS ORDERED: DIAZEPAM 5 MG TABLET PO ONE ×2 (07:00→12:23)
[2021-04-17] MEDS ORDERED: MIDAZOLAM 2 MG/2 ML VIAL IV ONE ×2 (07:00→12:23)
[2021-04-17] MEDS: SODIUM CHLORIDE 0.45% 1,000 ML IV SCH ×3 (08:23→15:49)
[2021-04-17] MEDS: amLODIPine 10 MG TABLET PO SCH (09:57)
[2021-04-17] MEDS: BUMETANIDE 1 MG TABLET PO SCH (09:57)
[2021-04-17] MEDS: METOPROLOL SUCCINATE XL 100 MG TABLET PO SCH (09:58)
[2021-04-17] MEDS: CLOPIDOGREL 75 MG TABLET PO SCH (09:58)
[2021-04-17] MEDS: ACETYLCYSTEINE 600 MG CAPSULE PO SCH ×2 (09:58→20:10)
[2021-04-17] MEDS: SIMVASTATIN 40 MG TABLET PO SCH (09:58)
[2021-04-17] MEDS: ASPIRIN EC 81 MG TABLET PO SCH (09:58)
[2021-04-17] MEDS: SODIUM BICARB INJ 150 MEQ in DEXTROSE 5% 1,000 ML IV SCH ×2 (10:03→18:15)
[2021-04-17] MEDS: ENOXAPARIN 40 MG/0.4 ML SYRINGE SUBCUT SCH ×2 (10:04→20:10)
[2021-04-17] MEDS: SODIUM HYPOCHLORITE 0.25% IRRIG 473 ML BOTTLE TOP SCH (11:11)
[2021-04-17] MEDS ORDERED: HEPARIN/NACL 0.9% 2 UNITS/ML 4,000 UNIT/2,000 ML BAG IV ONE (12:52)
[2021-04-17] MEDS ORDERED: HEPARIN 5,000 UNIT/1 ML VIAL ONE (12:59)
[2021-04-17] MEDS ORDERED: HEPARIN 5,000 UNIT/1 ML VIAL IV PRN ×2 (14:03→14:41)
[2021-04-17] MEDS ORDERED: HEPARIN/NACL 0.9% 2 UNITS/ML 2,000 UNIT/1,000 ML BAG IV ONE (14:16)
[2021-04-17] MEDS ORDERED: HEPARIN 1,000 UNIT/1 ML VIAL ONE (14:38)
[2021-04-17] MEDS: VANCOMYCIN INJ 1,500 MG in SODIUM CHLORIDE 0.9% 500 ML IV SCH (15:35)
[2021-04-18] MEDS: HYDROmorphone 2 MG/1 ML VIAL IV PRN ×6 (02:49→19:40)
[2021-04-18 05:48] LABS: INR 1.2; PT Patient Result 13.4 SECS (10.5-12.0)
[2021-04-18] MEDS: diphenhydrAMINE CAP 25 MG CAPSULE PO SCH ×4 (05:56→23:47)
[2021-04-18] MEDS ORDERED: SODIUM HYPOCHLORITE 0.25% IRRIG 473 ML BOTTLE TOP SCH (09:00)
[2021-04-18] MEDS: amLODIPine 10 MG TABLET PO SCH (10:36)
[2021-04-18] MEDS: ASPIRIN EC 81 MG TABLET PO SCH (10:36)
[2021-04-18] MEDS: METOPROLOL SUCCINATE XL 100 MG TABLET PO SCH (10:36)
[2021-04-18] MEDS: SIMVASTATIN 40 MG TABLET PO SCH (10:36)
[2021-04-18] MEDS: PIPERACILLIN/TAZOBACTAM 3,375 MG in SODIUM CHLORIDE 0.9% 100 ML IV SCH ×3 (10:36→23:43)
[2021-04-18] MEDS: CLOPIDOGREL 75 MG TABLET PO SCH (10:36)
[2021-04-18] MEDS: INSULIN REGULAR 100 UNIT/ML SUBCUT SCH ×4 (10:37→20:00)
[2021-04-18] MEDS: SODIUM HYPOCHLORITE 0.25% IRRIG 473 ML BOTTLE TOP SCH (12:30)
[2021-04-18] MEDS: ACETYLCYSTEINE 600 MG CAPSULE PO SCH (12:39)
[2021-04-18] MEDS: SODIUM BICARB INJ 150 MEQ in DEXTROSE 5% 1,000 ML IV SCH (12:57)
[2021-04-18] MEDS: SODIUM CHLORIDE 0.45% 1,000 ML IV SCH ×2 (16:15)
[2021-04-18] MEDS: VANCOMYCIN INJ 1,500 MG in SODIUM CHLORIDE 0.9% 500 ML IV SCH (17:36)
[2021-04-18] MEDS: ONDANSETRON 4 MG/2 ML VIAL IV PRN (19:39)
[2021-04-18] MEDS: diphenhydrAMINE CAP 25 MG CAPSULE PO PRN (19:41)
[2021-04-18] MEDS: ENOXAPARIN 40 MG/0.4 ML SYRINGE SUBCUT SCH (20:59)
[2021-04-19] MEDS ORDERED: ACETAMINOPHEN 325 MG TABLET PO PRN (00:39)
[2021-04-19 05:40] LABS: Calcium 7.7 MG/DL (8.5-10.1); Osmolality,Calculated 276.8 MOS/KG (273-304); Potassium 3.8 MMOL/L (3.5-5.1)
[2021-04-19] MEDS: diphenhydrAMINE CAP 25 MG CAPSULE PO SCH ×4 (06:09→23:45)
[2021-04-19] MEDS: PIPERACILLIN/TAZOBACTAM 3,375 MG in SODIUM CHLORIDE 0.9% 100 ML IV SCH ×3 (08:28→23:52)
[2021-04-19] MEDS: METOPROLOL SUCCINATE XL 100 MG TABLET PO SCH (08:29)
[2021-04-19] MEDS: CLOPIDOGREL 75 MG TABLET PO SCH (08:29)
[2021-04-19] MEDS: SIMVASTATIN 40 MG TABLET PO SCH (08:29)
[2021-04-19] MEDS: amLODIPine 10 MG TABLET PO SCH (08:29)
[2021-04-19] MEDS: ASPIRIN EC 81 MG TABLET PO SCH (08:29)
[2021-04-19] MEDS: ONDANSETRON 4 MG/2 ML VIAL IV PRN (08:31)
[2021-04-19] MEDS: HYDROmorphone 2 MG/1 ML VIAL IV PRN ×2 (08:34→15:57)
[2021-04-19] MEDS: INSULIN REGULAR 100 UNIT/ML SUBCUT SCH ×4 (10:20→21:08)
[2021-04-19] MEDS: SODIUM HYPOCHLORITE 0.25% IRRIG 473 ML BOTTLE TOP SCH (10:20)
[2021-04-19] MEDS ORDERED: LIDOCAINE 1% 50 ML VIAL ONE (10:43)
[2021-04-19] MEDS ORDERED: propofoL 200 MG/20 ML VIAL IV ONE (12:05)
[2021-04-19] MEDS ORDERED: MIDAZOLAM 2 MG/2 ML VIAL ONE (12:05)
[2021-04-19] MEDS ORDERED: LIDOCAINE 2% 5 ML VIAL ONE (12:05)
[2021-04-19] MEDS ORDERED: SEVOFLURANE 1 UNIT/15 MINUTE INH ONE (12:05)
[2021-04-19] MEDS ORDERED: fentaNYL 100 MCG/2 ML VIAL ONE (12:05)
[2021-04-19] MEDS ORDERED: ONDANSETRON 4 MG/2 ML VIAL ONE (12:48)
[2021-04-19] MEDS: ENOXAPARIN 40 MG/0.4 ML SYRINGE SUBCUT SCH (21:08)
[2021-04-20] MEDS: diphenhydrAMINE CAP 25 MG CAPSULE PO SCH ×3 (05:48→16:25)
[2021-04-20] MEDS: VANCOMYCIN INJ 1,500 MG in SODIUM CHLORIDE 0.9% 500 ML IV SCH (05:54)
[2021-04-20] MEDS: INSULIN REGULAR 100 UNIT/ML SUBCUT SCH ×3 (08:21→16:25)
[2021-04-20] MEDS: amLODIPine 10 MG TABLET PO SCH (08:32)
[2021-04-20] MEDS: METOPROLOL SUCCINATE XL 100 MG TABLET PO SCH (08:32)
[2021-04-20] MEDS: ASPIRIN EC 81 MG TABLET PO SCH (08:32)
[2021-04-20] MEDS: SIMVASTATIN 40 MG TABLET PO SCH (08:32)
[2021-04-20] MEDS: CLOPIDOGREL 75 MG TABLET PO SCH (08:32)
[2021-04-20] MEDS: PIPERACILLIN/TAZOBACTAM 3,375 MG in SODIUM CHLORIDE 0.9% 100 ML IV SCH ×2 (08:32→15:34)
[2021-04-20] MEDS: SODIUM HYPOCHLORITE 0.25% IRRIG 473 ML BOTTLE TOP SCH (08:33)
[2021-04-20 10:54] LABS: Basophils % 0.5 % (0.0-0.8); Eosinophils # 0.3 10*3/uL (0.0-0.87); Eosinophils % 3.2 % (0.00-10.9); Hematocrit 32.5 VOL% (42.0-52.0); Hemoglobin 10.7 GM/DL (14.0-18.0); Immature Granulocytes % 0.6 %; Immature Granulocytes Absolute 0.05 #; Lymphocytes # 1.3 10*3/uL (1.4-4.0); Lymphocytes % 15.6 % (21.2-54.2); Mean Corpuscular HGB Conc 32.9 GM/DL (32-36); Mean Corpuscular Volume 87.1 FL (87-102); Mean Platelet Volume 9.2 FL (9.6-12.0); Monocytes % 7.4 % (1.7-12.7); Neutrophils % 72.7 % (38.7-73.9); Platelet Count 372 T/CUMM (130-400); Red Blood Count 3.73 MC/CUMM (3.8-5.5); Red Cell Distribution Width 13.8 % (9.3-17.3); White Blood Count 8.1 T/CUMM (4-12)
[2021-04-20 11:08] LABS: Calcium 7.6 MG/DL (8.5-10.1); Osmolality,Calculated 275.1 MOS/KG (273-304); Potassium 3.1 MMOL/L (3.5-5.1)
[2021-04-20] MEDS ORDERED: POTASSIUM CHLORIDE 20 MEQ TABLET PO ONE (13:53)
[2021-04-20] MEDS: HYDROmorphone 2 MG/1 ML VIAL IV PRN ×2 (18:52→22:20)
[2021-04-20] MEDS: diphenhydrAMINE CAP 25 MG CAPSULE PO PRN (22:19)
[2021-04-20] MEDS: ENOXAPARIN 40 MG/0.4 ML SYRINGE SUBCUT SCH (22:20)
[2021-04-20] MEDS: ONDANSETRON 4 MG/2 ML VIAL IV PRN (22:21)
[2021-04-21] MEDS: PIPERACILLIN/TAZOBACTAM 3,375 MG in SODIUM CHLORIDE 0.9% 100 ML IV SCH ×3 (00:38→17:16)
[2021-04-21] MEDS: diphenhydrAMINE CAP 25 MG CAPSULE PO SCH ×5 (03:36→23:30)
[2021-04-21] MEDS: INSULIN REGULAR 100 UNIT/ML SUBCUT SCH ×5 (03:38→22:06)
[2021-04-21] MEDS: ONDANSETRON 4 MG/2 ML VIAL IV PRN (05:56)
[2021-04-21] MEDS: HYDROmorphone 2 MG/1 ML VIAL IV PRN ×2 (05:57→22:22)
[2021-04-21] MEDS: ASPIRIN EC 81 MG TABLET PO SCH (09:31)
[2021-04-21] MEDS: SIMVASTATIN 40 MG TABLET PO SCH (09:32)
[2021-04-21] MEDS: CLOPIDOGREL 75 MG TABLET PO SCH (09:32)
[2021-04-21] MEDS: amLODIPine 10 MG TABLET PO SCH (09:32)
[2021-04-21] MEDS: SODIUM HYPOCHLORITE 0.25% IRRIG 473 ML BOTTLE TOP SCH (09:32)
[2021-04-21] MEDS: METOPROLOL SUCCINATE XL 100 MG TABLET PO SCH (09:32)
[2021-04-21] MEDS: VANCOMYCIN INJ 1,500 MG in SODIUM CHLORIDE 0.9% 500 ML IV SCH (22:04)
[2021-04-21] MEDS: ENOXAPARIN 40 MG/0.4 ML SYRINGE SUBCUT SCH (22:06)
[2021-04-22] MEDS: PIPERACILLIN/TAZOBACTAM 3,375 MG in SODIUM CHLORIDE 0.9% 100 ML IV SCH ×3 (00:57→16:06)
[2021-04-22] MEDS: diphenhydrAMINE CAP 25 MG CAPSULE PO SCH ×2 (05:14→12:02)
[2021-04-22] MEDS: ASPIRIN EC 81 MG TABLET PO SCH (08:29)
[2021-04-22] MEDS: CLOPIDOGREL 75 MG TABLET PO SCH (08:29)
[2021-04-22] MEDS: METOPROLOL SUCCINATE XL 100 MG TABLET PO SCH (08:29)
[2021-04-22] MEDS: amLODIPine 10 MG TABLET PO SCH (08:29)
[2021-04-22] MEDS ORDERED: MULTIVITAMIN (CENTRUM) TABLET PO SCH (09:00)
[2021-04-22] MEDS: SIMVASTATIN 40 MG TABLET PO SCH (09:14)
[2021-04-22] MEDS: SODIUM HYPOCHLORITE 0.25% IRRIG 473 ML BOTTLE TOP SCH (09:14)
[2021-04-22] MEDS: INSULIN REGULAR 100 UNIT/ML SUBCUT SCH ×3 (09:14→16:06)
[2021-04-22] MEDS: HYDROmorphone 2 MG/1 ML VIAL IV PRN (10:30)
[2021-04-22] MEDS ORDERED: LINEZOLID INJ 600 MG/300 ML PREMIX IV SCH (11:00)
[2021-04-22 16:11] VITALS: BP 140/72
== END 2021-04-22 16:38 | DRG 240 ==
LOC: N.TELEN 16:41
PROVIDERS: ADMIT Surgery; ATTEND Surgery

== ENCOUNTER 2021-08-31 17:04 | Inpatient (IN) ==
[2021-08-31] MEDS ORDERED: SODIUM CHLORIDE 0.9% 1,000 ML IV STA (19:45)
[2021-08-31] MEDS ORDERED: MECLIZINE 25 MG TABLET PO STA (19:45)
[2021-08-31] MEDS ORDERED: ONDANSETRON 4 MG/2 ML VIAL IV STA (19:45)
[2021-08-31 20:08] LABS: Basophils # 0.1 10*3/uL (0.0-0.2); Basophils % 0.6 % (0.0-0.8); Eosinophils # 0.2 10*3/uL (0.0-0.87); Eosinophils % 2.7 % (0.00-10.9); Hematocrit 39.9 VOL% (42.0-52.0); Hemoglobin 12.6 GM/DL (14.0-18.0); Immature Granulocytes % 0.9 %; Immature Granulocytes Absolute 0.08 #; Lymphocytes # 1.2 10*3/uL (1.4-4.0); Lymphocytes % 13.7 % (21.2-54.2); Mean Corpuscular HGB Conc 31.6 GM/DL (32-36); Mean Platelet Volume 8.9 FL (9.6-12.0); Monocytes # 0.5 10*3/uL (0.11-0.8); Monocytes % 5.9 % (1.7-12.7); Neutrophils % 76.2 % (38.7-73.9); Platelet Count 297 T/CUMM (130-400); Red Blood Count 4.29 MC/CUMM (3.8-5.5); Red Cell Distribution Width 14.2 % (9.3-17.3); White Blood Count 8.8 T/CUMM (4-12)
[2021-08-31 21:27] LABS: Alanine Aminotransferase 18 U/L (16-61); Albumin 2.6 G/DL (3.4-5.0); Alkaline Phosphatase 135 U/L (45-117); Aspartate Amino Transferase 16 U/L (0-37); Bilirubin,Total < 0.39 MG/DL (0.20-1.00); Blood Urea Nitrogen 35 MG/DL (7-18); Calcium 8.2 MG/DL (8.5-10.1); Carbon Dioxide 21 MMOL/L (21-32); Chloride 109 MMOL/L (98-107); Estimated Glom Filtration Rate 20 ML/MIN; Glucose 148 MG/DL (74-106); Osmolality,Calculated 287.5 MOS/KG (273-304); Sodium 139 MMOL/L (136-145)
[2021-09-01] MEDS ORDERED: MORPHINE 2 MG/1 ML SYRINGE IV PRN ×2 (10:18)
[2021-09-01] MEDS ORDERED: ONDANSETRON 4 MG/2 ML VIAL IV PRN ×2 (10:18→15:20)
[2021-09-01] MEDS: LACTATED RINGERS 1,000 ML IV SCH ×2 (10:45→21:38)
[2021-09-01 10:57] LABS: Amorphous Crystals,Urine Few /HPF (Few); Bacteria,Urine Occasional /HPF (Few); RBC,Urine 7 /HPF (0-4); Squamous Epithelial Cell,Urine Occasional /HPF (0-10)
[2021-09-01 10:58] LABS: Glucose,Urine (UA) 500 mg/dL (Negative); Protein,Urine >=300 mg/dL (Negative); Urine Appearance Clear (Clear); Urine Color Yellow (Yellow); Urine Specific Gravity 1.025 (1.001-1.035); Urine pH 5.5 (4.5-8.0)
[2021-09-01 10:59] LABS: Bilirubin,Urine Negative (Negative); Blood, Urine Trace mg/dL (Negative); Ketones,Urine Negative (Negative); Nitrite,Urine Negative (Negative); Urine Urobilinogen 0.2 eU/dL (<2.0)
[2021-09-01 12:10] LABS: Barbiturates Screen,Urine Negative (Negative); Benzodiazepines Screen,Urine Negative (Negative); Cannabinoid Screen,Urine Negative (Negative); Opiate Screen,Urine Positive (Negative); Phencyclidine Screen,Urine Negative (Negative)
[2021-09-01] MEDS: PIPERACILLIN/TAZOBACTAM 3,375 MG in SODIUM CHLORIDE 0.9% 100 ML IV SCH ×2 (13:50→21:38)
[2021-09-01] MEDS ORDERED: GLUCAGON 1 MG VIAL IM PRN (15:20)
[2021-09-01] MEDS ORDERED: PIPERACILLIN/TAZOBACTAM 2,250 MG in SODIUM CHLORIDE 0.9% 100 ML IV SCH (15:20)
[2021-09-01] MEDS ORDERED: ACETAMINOPHEN 325 MG TABLET PO PRN (15:20)
[2021-09-01] MEDS ORDERED: DEXTROSE 10% 250 ML BAG IV PRN (15:25)
[2021-09-01 16:11] LABS: Basophils # 0.1 10*3/uL (0.0-0.2); Basophils % 0.8 % (0.0-0.8); Eosinophils # 0.3 10*3/uL (0.0-0.87); Eosinophils % 4.1 % (0.00-10.9); Hematocrit 37.1 VOL% (42.0-52.0); Hemoglobin 11.7 GM/DL (14.0-18.0); Immature Granulocytes % 0.8 %; Immature Granulocytes Absolute 0.06 #; Lymphocytes # 1.7 10*3/uL (1.4-4.0); Lymphocytes % 21.8 % (21.2-54.2); Mean Corpuscular HGB Conc 31.5 GM/DL (32-36); Mean Corpuscular Volume 93.5 FL (87-102); Monocytes # 0.7 10*3/uL (0.11-0.8); Monocytes % 9.3 % (1.7-12.7); Neutrophils % 63.2 % (38.7-73.9); Platelet Count 274 T/CUMM (130-400); Red Blood Count 3.97 MC/CUMM (3.8-5.5); Red Cell Distribution Width 14.4 % (9.3-17.3); White Blood Count 7.8 T/CUMM (4-12)
[2021-09-01 16:33] LABS: Alanine Aminotransferase 17 U/L (16-61); Albumin 2.1 G/DL (3.4-5.0); Alkaline Phosphatase 112 U/L (45-117); Aspartate Amino Transferase 14 U/L (0-37); Bilirubin,Total < 0.39 MG/DL (0.20-1.00); Blood Urea Nitrogen 36 MG/DL (7-18); Calcium 8.5 MG/DL (8.5-10.1); Carbon Dioxide 21 MMOL/L (21-32); Chloride 110 MMOL/L (98-107); Estimated Glom Filtration Rate 19 ML/MIN; Glucose 108 MG/DL (74-106); Osmolality,Calculated 281.8 MOS/KG (273-304); Potassium 4.6 MMOL/L (3.5-5.1); Sodium 137 MMOL/L (136-145); Total Protein 6.4 G/DL (6.4-8.2)
[2021-09-01] MEDS: INSULIN REGULAR 100 UNIT/ML SUBCUT SCH ×2 (16:41→21:37)
[2021-09-01] MEDS: PANTOPRAZOLE 40 MG VIAL IV SCH (16:55)
[2021-09-01] MEDS: SODIUM CHLORIDE 0.9% 1,000 ML IV SCH (16:56)
[2021-09-02] MEDS: INSULIN REGULAR 100 UNIT/ML SUBCUT SCH ×4 (01:09→17:54)
[2021-09-02] MEDS: PIPERACILLIN/TAZOBACTAM 3,375 MG in SODIUM CHLORIDE 0.9% 100 ML IV SCH ×3 (03:00→17:30)
[2021-09-02 05:03] LABS: Basophils # 0.1 10*3/uL (0.0-0.2); Basophils % 0.8 % (0.0-0.8); Eosinophils # 0.3 10*3/uL (0.0-0.87); Eosinophils % 4.5 % (0.00-10.9); Hematocrit 36.1 VOL% (42.0-52.0); Hemoglobin 11.4 GM/DL (14.0-18.0); Immature Granulocytes % 0.6 %; Immature Granulocytes Absolute 0.04 #; Lymphocytes # 1.3 10*3/uL (1.4-4.0); Lymphocytes % 20.6 % (21.2-54.2); Mean Corpuscular HGB Conc 31.6 GM/DL (32-36); Mean Corpuscular Volume 94.5 FL (87-102); Mean Platelet Volume 9.3 FL (9.6-12.0); Monocytes # 0.6 10*3/uL (0.11-0.8); Monocytes % 9.9 % (1.7-12.7); Neutrophils % 63.6 % (38.7-73.9); Platelet Count 243 T/CUMM (130-400); Red Blood Count 3.82 MC/CUMM (3.8-5.5); Red Cell Distribution Width 14.2 % (9.3-17.3); White Blood Count 6.5 T/CUMM (4-12)
[2021-09-02 05:23] LABS: Alanine Aminotransferase 16 U/L (16-61); Alkaline Phosphatase 115 U/L (45-117); Aspartate Amino Transferase 14 U/L (0-37); Bilirubin,Total < 0.39 MG/DL (0.20-1.00); Blood Urea Nitrogen 34 MG/DL (7-18); Carbon Dioxide 22 MMOL/L (21-32); Chloride 112 MMOL/L (98-107); Estimated Glom Filtration Rate 20 ML/MIN; Glucose 128 MG/DL (74-106); Osmolality,Calculated 288.4 MOS/KG (273-304); Potassium 4.6 MMOL/L (3.5-5.1); Sodium 140 MMOL/L (136-145); Total Protein 5.9 G/DL (6.4-8.2)
[2021-09-02] MEDS: SODIUM CHLORIDE 0.9% 1,000 ML IV SCH (07:55)
[2021-09-02] MEDS: LACTATED RINGERS 1,000 ML IV SCH ×2 (08:11→10:37)
[2021-09-02] MEDS: PANTOPRAZOLE 40 MG VIAL IV SCH (08:15)
[2021-09-02] MEDS: CHOLECALCIFEROL 5,000 UNIT TABLET PO SCH ×2 (12:26→20:43)
[2021-09-02] MEDS ORDERED: FUROSEMIDE 20 MG/2 ML VIAL IV ONE (18:31)
[2021-09-02] MEDS: HYDROmorphone 1 MG/1 ML SYRINGE IV PRN (18:50)
[2021-09-02] MEDS: diphenhydrAMINE CAP 25 MG CAPSULE PO PRN (19:13)
[2021-09-02] MEDS: SIMVASTATIN 40 MG TABLET PO SCH (20:43)
[2021-09-03] MEDS: INSULIN REGULAR 100 UNIT/ML SUBCUT SCH ×4 (01:17→17:47)
[2021-09-03] MEDS: PIPERACILLIN/TAZOBACTAM 3,375 MG in SODIUM CHLORIDE 0.9% 100 ML IV SCH ×3 (02:40→17:44)
[2021-09-03 09:57] LABS: Calcium 8.9 MG/DL (8.5-10.1); Osmolality,Calculated 281.7 MOS/KG (273-304); Potassium 4.4 MMOL/L (3.5-5.1)
[2021-09-03] MEDS: amLODIPine 10 MG TABLET PO SCH (10:19)
[2021-09-03] MEDS: ASPIRIN EC 81 MG TABLET PO SCH (10:19)
[2021-09-03] MEDS: diphenhydrAMINE CAP 25 MG CAPSULE PO PRN ×2 (10:19→21:07)
[2021-09-03] MEDS: PANTOPRAZOLE 40 MG VIAL IV SCH (10:24)
[2021-09-03] MEDS: METOPROLOL SUCCINATE XL 100 MG TABLET PO SCH (10:26)
[2021-09-03] MEDS: CHOLECALCIFEROL 5,000 UNIT TABLET PO SCH ×2 (10:27→21:07)
[2021-09-03] MEDS: HYDROmorphone 1 MG/1 ML SYRINGE IV PRN (11:54)
[2021-09-03] MEDS: SIMVASTATIN 40 MG TABLET PO SCH (21:07)
[2021-09-04] MEDS: PIPERACILLIN/TAZOBACTAM 3,375 MG in SODIUM CHLORIDE 0.9% 100 ML IV SCH ×3 (01:33→18:05)
[2021-09-04] MEDS: INSULIN REGULAR 100 UNIT/ML SUBCUT SCH ×6 (03:08→20:57)
[2021-09-04 06:17] LABS: Calcium 8.8 MG/DL (8.5-10.1); Osmolality,Calculated 283.4 MOS/KG (273-304)
[2021-09-04] MEDS ORDERED: ROCURONIUM 50 MG/5 ML VIAL IV ONE (06:43)
[2021-09-04] MEDS ORDERED: MIDAZOLAM 2 MG/2 ML VIAL ONE (06:43)
[2021-09-04] MEDS ORDERED: LIDOCAINE 2% 5 ML VIAL ONE (06:43)
[2021-09-04] MEDS ORDERED: propofoL 200 MG/20 ML VIAL IV ONE (06:43)
[2021-09-04] MEDS ORDERED: fentaNYL 100 MCG/2 ML VIAL ONE (06:43)
[2021-09-04] MEDS ORDERED: SEVOFLURANE 1 UNIT/15 MINUTE INH ONE ×4 (06:43→08:40)
[2021-09-04] MEDS ORDERED: ePHEDrine 50 MG/ML VIAL ONE (07:23)
[2021-09-04] MEDS ORDERED: SODIUM CHLORIDE 0.9% 250 ML IV SCH (07:30)
[2021-09-04] MEDS ORDERED: TISSUE ADHESIVE 1 EACH APPLICATOR TOP ONE (07:42)
[2021-09-04] MEDS ORDERED: PHENYLEPHRINE 1 MG/10 ML SYRINGE IV ONE (07:44)
[2021-09-04] MEDS ORDERED: ONDANSETRON 4 MG/2 ML VIAL ONE (08:10)
[2021-09-04] MEDS ORDERED: SUGAMMADEX 200 MG/2 ML VIAL IV ONE (08:14)
[2021-09-04 08:17] LABS: Basophils % 0.7 % (0.0-0.8); Eosinophils # 0.3 10*3/uL (0.0-0.87); Hematocrit 36.7 VOL% (42.0-52.0); Hemoglobin 11.5 GM/DL (14.0-18.0); Immature Granulocytes % 0.7 %; Immature Granulocytes Absolute 0.04 #; Lymphocytes # 1.6 10*3/uL (1.4-4.0); Lymphocytes % 27.3 % (21.2-54.2); Mean Corpuscular HGB Conc 31.3 GM/DL (32-36); Mean Corpuscular Volume 93.6 FL (87-102); Mean Platelet Volume 9.7 FL (9.6-12.0); Monocytes # 0.8 10*3/uL (0.11-0.8); Monocytes % 13.3 % (1.7-12.7); Platelet Count 236 T/CUMM (130-400); Red Blood Count 3.92 MC/CUMM (3.8-5.5); Red Cell Distribution Width 14.2 % (9.3-17.3)
[2021-09-04] MEDS ORDERED: hydrALAZINE 20 MG/1 ML VIAL ONE (08:40)
[2021-09-04] MEDS: HYDROmorphone 1 MG/1 ML SYRINGE IV PRN ×2 (08:42→08:52)
[2021-09-04] MEDS ORDERED: hydrALAZINE 20 MG/1 ML VIAL IV ONE (08:46)
[2021-09-04] MEDS ORDERED: ONDANSETRON 4 MG/2 ML VIAL IV PRN (08:46)
[2021-09-04] MEDS ORDERED: diphenhydrAMINE 50 MG/1 ML VIAL ONE (09:03)
[2021-09-04] MEDS ORDERED: diphenhydrAMINE 50 MG/1 ML VIAL IV PRN (09:05)
[2021-09-04] MEDS: ASPIRIN EC 81 MG TABLET PO SCH (09:29)
[2021-09-04] MEDS: METOPROLOL SUCCINATE XL 100 MG TABLET PO SCH (09:29)
[2021-09-04] MEDS: CHOLECALCIFEROL 5,000 UNIT TABLET PO SCH ×2 (09:29→20:56)
[2021-09-04] MEDS: diphenhydrAMINE CAP 25 MG CAPSULE PO PRN ×2 (09:29→21:01)
[2021-09-04] MEDS: amLODIPine 10 MG TABLET PO SCH (09:29)
[2021-09-04] MEDS ORDERED: LORazepam 2 MG/1 ML VIAL IV PRN (10:32)
[2021-09-04] MEDS ORDERED: FAMOTIDINE INJ 40 MG in SODIUM CHLORIDE 0.9% 100 ML IV ONE (10:34)
[2021-09-04] MEDS ORDERED: hydrOXYzine HCL 25 MG TABLET PO ONE (10:34)
[2021-09-04] MEDS: LACTATED RINGERS 1,000 ML IV SCH (16:25)
[2021-09-04] MEDS: BUMETANIDE 1 MG TABLET PO SCH (20:56)
[2021-09-04] MEDS: SIMVASTATIN 40 MG TABLET PO SCH (20:56)
[2021-09-05] MEDS: LACTATED RINGERS 1,000 ML IV SCH (01:30)
[2021-09-05] MEDS: PIPERACILLIN/TAZOBACTAM 3,375 MG in SODIUM CHLORIDE 0.9% 100 ML IV SCH (01:56)
[2021-09-05 06:47] LABS: Basophils # 0.1 10*3/uL (0.0-0.2); Basophils % 0.8 % (0.0-0.8); Eosinophils # 0.4 10*3/uL (0.0-0.87); Eosinophils % 5.6 % (0.00-10.9); Hematocrit 39.2 VOL% (42.0-52.0); Hemoglobin 12.4 GM/DL (14.0-18.0); Immature Granulocytes % 0.3 %; Immature Granulocytes Absolute 0.02 #; Lymphocytes # 1.5 10*3/uL (1.4-4.0); Lymphocytes % 20.7 % (21.2-54.2); Mean Corpuscular HGB Conc 31.6 GM/DL (32-36); Mean Corpuscular Volume 94.2 FL (87-102); Mean Platelet Volume 9.4 FL (9.6-12.0); Monocytes # 0.8 10*3/uL (0.11-0.8); Monocytes % 11.3 % (1.7-12.7); Neutrophils % 61.3 % (38.7-73.9); Platelet Count 273 T/CUMM (130-400); Red Blood Count 4.16 MC/CUMM (3.8-5.5); Red Cell Distribution Width 14.1 % (9.3-17.3); White Blood Count 7.1 T/CUMM (4-12)
[2021-09-05 07:17] LABS: Calcium 8.6 MG/DL (8.5-10.1); Osmolality,Calculated 280.5 MOS/KG (273-304)
[2021-09-05 08:13] VITALS: BP 182/92
[2021-09-05] MEDS: CHOLECALCIFEROL 5,000 UNIT TABLET PO SCH (09:22)
[2021-09-05] MEDS: METOPROLOL SUCCINATE XL 100 MG TABLET PO SCH (09:22)
[2021-09-05] MEDS: amLODIPine 10 MG TABLET PO SCH (09:22)
[2021-09-05] MEDS: diphenhydrAMINE CAP 25 MG CAPSULE PO PRN (09:24)
[2021-09-05] MEDS: BUMETANIDE 1 MG TABLET PO SCH (09:24)
[2021-09-05] MEDS: ASPIRIN EC 81 MG TABLET PO SCH (09:24)
[2021-09-05] MEDS: INSULIN REGULAR 100 UNIT/ML SUBCUT SCH (09:27)
== END 2021-09-05 11:19 | disposition home or self-care (01) | DRG 263 ==
LOC: N.ED 17:04 → N.EDINP 17:04 → N.TELEN 09-01 18:00 → N.TELES 09-01 21:21
PROVIDERS: ADMIT Student in an Organized Health Care Education/Training Program; ATTEND Student in an Organized Health Care Education/Training Program
PROC: LAPCHOL (2021-09-04 07:12)